=== PATIENT | male | born 1990 | race Two or more races ===

== ENCOUNTER 2018-12-14 13:58 | Emergency (ER) | payer OTHER ==
[~2018-12-14] VITALS: Ht 182.9 cm; Wt 77.3 kg
[2018-12-14 17:28] VITALS: BP 125/71
== END 2018-12-14 16:20 | disposition home or self-care (01) ==
LOC: EMS 14:01
DX: S60.410A Abrasion of right index finger, initial encounter (principal); W23.0XXA Caught, crushed, jammed, or pinched between moving objects, initial encounter; Y93.89 Activity, other specified; Y92.89 Other specified places as the place of occurrence of the external cause; Y99.8 Other external cause status